=== PATIENT | male | born 1960 | race Caucasian/White ===

== ENCOUNTER 2018-02-03 09:05 | Emergency (ER) | payer SELFPAY ==
[2018-02-03] MEDS ORDERED: IBUPROFEN 200 MG TAB PO ONE (09:32)
[2018-02-03] MEDS ORDERED: IBUPROFEN 400 MG TAB ONE (09:32)
--- NOTE | 2018-02-03 10:16 | RAD REPORT ---
EXAM DESCRIPTION: RAD - Knee Right 3 View - 02/03/2018 10:00 am CLINICAL HISTORY: Knee pain following trauma COMPARISON: None. FINDINGS: No fracture, dislocation or periosteal reaction.No joint effusion seen. Minimal medial com partment narrowing seen. Marginal spurring changes are seen in each compartment and the patellofemora l joint space. There is spurring along the tibial spine. Edema changes are evident anterior to the knee. IMPRESSION: Knee joint degenerative changes are present with no acute bone or joint finding. Clinical concerns for internal derangement or occult bony injury could be further assessed with MR im aging.
--- NOTE | 2018-02-03 10:39 | ER ---
Nurse's Notes [facility] Name: Roro Walter Age: 57 yrs Sex: Male : 1960 Arrival Date: 02/03/2018 Time: 09:10 Bed 13 Private MD: None, None Diagnosis: Other internal derangements of unspecified knee Presentation: 02/03 09:18 Presenting complaint: Patient states: I was walking at work and felt a pop in my right jl7 knee. Transition of care: patient was not received from another setting of care. Onset of symptoms was February 03, 2018. Risk Assessment: Do you want to hurt yourself or someone else? Patient reports no desire to harm self or others. Initial Sepsis Screen: Does the patient meet any 2 criteria? No. Patient's initial sepsis screen is negative. Does the patient have a suspected source of infection? No. Patient's initial sepsis screen is negative. Care prior to arrival: None. 09:18 Method Of Arrival: Ambulatory jl7 09:18 Acuity: NAVARRO 4 jl7 Triage Assessment: 09:20 General: Appears in no apparent distress. uncomfortable, Behavior is calm, cooperative, jl7 appropriate for age. Pain: Complains of pain in right knee Pain currently is 5 out of 10 on a pain scale. Pain began 30 min ago. EENT: No signs and/or symptoms were reported regarding the EENT system. Neuro: Level of Consciousness is awake, alert, obeys commands, Oriented to person, place, time, situation. Cardiovascular: Patient's skin is warm and dry. Respiratory: Airway is patent Respiratory effort is even, unlabored, Respiratory pattern is regular, symmetrical. Derm: Skin is pink, warm \T\ dry. Musculoskeletal: Range of motion: limited in right knee. Injury Description: none. Historical: - Allergies: 09:20 No Known Allergies; jl7 - Home Meds: 09:20 None [Active]; jl7 - PMHx: 09:20 None; jl7 - PSHx: 09:20 Hernia repair; Knee surgery; jl7 - Immunization history:: Adult Immunizations unknown. - Social history:: Smoking status: Patient/guardian denies using tobacco. - Ebola Screening: : No symptoms or risks identified at this time. Screenin:23 Abuse screen: Denies threats or abuse. Denies injuries from another. Nutritional jl7 screening: No deficits noted. Tuberculosis screening: No symptoms or risk factors identified. Fall Risk None identified. Assessment: 09:23 General: See triage assessment. jl7 Vital Signs: 09:20 BP 157 / 99; Pulse 79; Resp 16 S; Pulse Ox 100% on R/A; Weight 104.33 kg (R); Height 5 jl7 ft. 9 in. (175.26 cm) (R); Pain 5/10; 10:15 BP 141 / 97; Pulse 70; Resp 18; Pulse Ox 97% on R/A; mh5 09:20 Body Mass Index 33.96 (104.33 kg, 175.26 cm) jl7 ED Course: 09:10 Patient arrived in ED. mr 09:10 None, None is Private Physician. mr 09:12 Joesph Pham, ANANYA is Primary Nurse. jl7 09:13 Adolfo Nolen MD is Attending Physician. 09:19 Triage completed. jl7 09:20 Arm band placed on right wrist. Patient placed in an exam room, in a wheelchair. jl7 09:23 Patient has correct armband on for positive identification. Placed in gown. Bed in low jl7 position. Call light in reach. Side rails up X 1. Pulse ox on. NIBP on. Warm blanket given. 09:23 No provider procedures requiring assistance completed. Patient did not have IV access jl7 during this emergency room visit. 10:00 X-ray completed. Portable x-ray completed in exam room. Patient tolerated procedure kw well. 10:00 Knee Right 3 View XRAY In Process Unspecified. EDWY 10:37 Duong Naik MD is Referral Physician. Administered Medications: 09:27 Drug: Ibuprofen 600 mg Route: PO; jl7 10:30 Follow up: Response: No adverse reaction jl7 Outcome: 10:38 Discharge ordered by . 10:55 Discharged to home ambulatory. jl7 10:55 Condition: stable 10:55 Discharge instructions given to patient, Instructed on discharge instructions, follow up and referral plans. medication usage, Demonstrated understanding of instructions, follow-up care, medications, Prescriptions given X 1. 10:56 Patient left the ED. jl7 Signatures: Dispatcher [employer] [facility] Natalie Dutta Dana Carreon Maria [facility] Joesph Pham, ANANYA RN jl7 Adolfo Nolen MD MD gs
--- NOTE | 2018-02-03 10:39 | EDPHYS ---
Physician Documentation [facility] Name: Rroo Walter Age: 57 yrs Sex: Male : 1960 Arrival Date: 02/03/2018 Time: 09:10 Bed 13 Private MD: None, None ED Physician Adolfo Nolen HPI: 02/03 10:26 This 57 yrs old Male presents to ER via Ambulatory with complaints of Knee gs Injury. 10:26 The patient presents with an injury. The complaints affect the right knee. Context: The gs problem was sustained at work, resulted from a mis-step. Onset: The symptoms/episode began/occurred acutely, just prior to arrival. Modifying factors: the symptoms are aggravated by movement, weight bearing, bending knee. Severity of symptoms: At their worst the symptoms were moderate, in the emergency department the symptoms are unchanged. The patient has not experienced similar symptoms in the past. Historical: - Allergies: 09:20 No Known Allergies; jl7 - Home Meds: 09:20 None [Active]; jl7 - PMHx: 09:20 None; jl7 - PSHx: 09:20 Hernia repair; Knee surgery; jl7 - Immunization history:: Adult Immunizations unknown. - Social history:: Smoking status: Patient/guardian denies using tobacco. - Ebola Screening: : No symptoms or risks identified at this time. ROS: 10:26 All other systems are negative. gs Exam: 10:26 Head/Face: Normocephalic, atraumatic. Eyes: Pupils equal round and reactive to light, gs extra-ocular motions intact. Lids and lashes normal. Conjunctiva and sclera are non-icteric and not injected. Cornea within normal limits. Periorbital areas with no swelling, redness, or edema. ENT: Nares patent. No nasal discharge, no septal abnormalities noted. Tympanic membranes are normal and external auditory canals are clear. Oropharynx with no redness, swelling, or masses, exudates, or evidence of obstruction, uvula midline. Mucous membranes moist. Neck: Trachea midline, no thyromegaly or masses palpated, and no cervical lymphadenopathy. Supple, full range of motion without nuchal rigidity, or vertebral point tenderness. No Meningismus. Chest/axilla: Normal chest wall appearance and motion. Nontender with no deformity. No lesions are appreciated. Cardiovascular: Regular rate and rhythm with a normal S1 and S2. No gallops, murmurs, or rubs. Normal PMI, no JVD. No pulse deficits. Respiratory: Lungs have equal breath sounds bilaterally, clear to auscultation and percussion. No rales, rhonchi or wheezes noted. No increased work of breathing, no retractions or nasal flaring. Abdomen/GI: Soft, non-tender, with normal bowel sounds. No distension or tympany. No guarding or rebound. No evidence of tenderness throughout. Back: No spinal tenderness. No costovertebral tenderness. Full range of motion. Skin: Warm, dry with normal turgor. Normal color with no rashes, no lesions, and no evidence of cellulitis. Neuro: Awake and alert, GCS 15, oriented to person, place, time, and situation. Cranial nerves II-XII grossly intact. Motor strength 5/5 in all extremities. Sensory grossly intact. Cerebellar exam normal. Normal gait. 10:26 Constitutional: The patient appears alert, awake. 10:26 Musculoskeletal/extremity: Extremities: ROM: limited active range of motion due to pain, limited passive range of motion due to pain, Circulation is intact in all extremities. Joints: the right knee displays effusion, none, . Vital Signs: 09:20 BP 157 / 99; Pulse 79; Resp 16 S; Pulse Ox 100% on R/A; Weight 104.33 kg (R); Height 5 jl7 ft. 9 in. (175.26 cm) (R); Pain 5/10; 10:15 BP 141 / 97; Pulse 70; Resp 18; Pulse Ox 97% on R/A; mh5 09:20 Body Mass Index 33.96 (104.33 kg, 175.26 cm) jl7 MDM: 09:22 Patient medically screened. gs 10:26 Differential diagnosis: contusion, abrasion, tendonitis, sparin. Data reviewed: vital gs signs, nurses notes. 10:39 Counseling: I had a detailed discussion with the patient and/or guardian regarding: the gs presence of at least one elevated blood pressure reading (>120/80) during this emergency department visit. Special discussion: I have referred the patient to see his PCP for further evaluation of high blood pressure. 02/03 09:23 Order name: Knee Right 3 View XRAY; Complete Time: 10:24 gs Administered Medications: 09:27 Drug: Ibuprofen 600 mg Route: PO; jl7 10:30 Follow up: Response: No adverse reaction jl7 Disposition: 02/03/18 10:38 Discharged to Home. Impression: Other internal derangements of unspecified knee. - Condition is Stable. - Discharge Instructions: Knee Ligament Injury, Arthroscopy, Managing Your Hypertension. - Prescriptions for Tylenol- Codeine #4 300-60 mg Oral Tablet - take 1 tablet by ORAL route every 6 hours As needed; 6 tablet. - Medication Reconciliation Form, Thank You Letter, Antibiotic Education, Prescription Opioid Use form. - Work release form (02/03/18 11:15). rg4 - Follow up: Duong Naik MD; When: 2 - 3 days; Reason: Re-evaluation by your physician. Signatures: Dispatcher [employer] Joesph Bell RN RN jl7 Adolfo Nolen MD MD gs Garcia, Rubi rg4 Corrections: (The following items were deleted from the chart) 10:56 10:38 02/03/2018 10:38 Discharged to Home. Impression: Other internal derangements of jl7 unspecified knee. Condition is Stable. Forms are Medication Reconciliation Form, Thank You Letter, Antibiotic Education, Prescription Opioid Use. Follow up: Duong Naik; When: 2 - 3 days; Reason: Re-evaluation by your physician. gs
== END 2018-02-03 10:56 | disposition home or self-care (01) ==
LOC: ER 09:05
DX: M23.91 Unspecified internal derangement of right knee (principal); X58.XXXA Exposure to other specified factors, initial encounter; Y93.9 Activity, unspecified; Y92.89 Other specified places as the place of occurrence of the external cause; Y99.8 Other external cause status
CPT/HCPCS: 99284